=== PATIENT | male | born 2000 | race Caucasian/White ===

== ENCOUNTER → 2019-10-20 12:56 | Outpatient (BNVA) | payer BC, SELFPAY | PROVIDERS: Visit Provider Nurse Practitioner Family | DX: R35.0 Frequency of micturition (principal); E11.9 Type 2 diabetes mellitus without complications; Z71.89 Other specified counseling | CPT/HCPCS: 80053; 80061; 81000; 83036; 85025 ==

== ENCOUNTER → 2020-08-19 09:08 | Outpatient (BNVA) | payer BC, SELFPAY | PROVIDERS: Visit Provider Family Medicine | DX: Z98.890 Other specified postprocedural states (principal); E11.8 Type 2 diabetes mellitus with unspecified complications; Z79.4 Long term (current) use of insulin | CPT/HCPCS: 80048; 83036 ==

== ENCOUNTER → 2020-08-26 08:36 | Outpatient (BNVA) | payer BC, SELFPAY | PROVIDERS: Referring Provider Family Medicine; Visit Provider Orthopaedic Surgery | DX: Z98.890 Other specified postprocedural states (principal) | CPT/HCPCS: 73560; 73565 ==

== ENCOUNTER 2020-09-10 06:59 | Outpatient (CLI) | payer BC, SELFPAY ==
--- NOTE | 2020-09-10 07:15 | MR_ITS ---
WS: [id number] MRI LEFT KNEE NONCONTRAST TECHNIQUE: Axial PD, coronal PD fat sat, coronal PD, sagittal PD, and sagittal PD fat-sat images obta michelled. CLINICAL INFORMATION: M25.569 - Pain in unspecified knee COMPARISON: MRI December 2018 FINDINGS: Distal quadriceps and patella tendons are intact. Anterior and posterior cruciate ligaments are intact. Susceptibility artifact involving the medial femoral condyle. Chronic appearing tear wit h blunting of the anterior horn lateral meniscus is new from previous. Normal medial meniscus. Mild c hondromalacia patella. Medial and lateral collateral ligaments appear intact. Normal popliteal fossa. Prior postoperative changes articular cartilage graft placement medial femoral condyle due to osteoch ondral lesion. This appears stable from previous. Postoperative changes articular surface donor site lateral femoral condyle. Postoperative changes medial patellar retinaculum. MR/MR knee LT wo con* [id number] IMPRESSION: 1. Normal ACL and PCL. 2. Chronic appearing tear involving the anterior horn lateral meniscus with bl unting of the anterior horn. This is new from previous. Some of this may be pos toperative. 3. Mild chondromalacia patella. 4. Medial and lateral collateral ligaments are intact. 5. Prior postoperative changes are similar to previous described above.
== END 2020-09-10 07:00 | disposition home or self-care (01) ==
LOC: RADSHAW 07:02
PROVIDERS: Visit Provider Orthopaedic Surgery
DX: M22.42 Chondromalacia patellae, left knee (principal); S83.282A Other tear of lateral meniscus, current injury, left knee, initial encounter; X58.XXXA Exposure to other specified factors, initial encounter
CPT/HCPCS: 73721

== ENCOUNTER → 2021-09-04 09:15 | Outpatient (BNVA) | payer SELFPAY | PROVIDERS: PCP Family Medicine; Visit Provider Family Medicine | DX: E10.9 Type 1 diabetes mellitus without complications (principal) | CPT/HCPCS: 80048; 83036 ==